=== PATIENT | male | born 1980 | race Caucasian/White ===

== ENCOUNTER 2018-03-23 07:51 | Outpatient (REF) | payer OTHER, SELFPAY ==
[2018-03-23 16:28] LABS: ALT 114 U/L (12-78); AST 34 U/L (15-37); Albumin 3.8 g/dL (3.4-5.0); Alkaline Phosphatase 65 U/L (46-116); Anion Gap 10.1 mmol/L (3-11); BUN 19 mg/dL (7-18); Bilirubin, Total 0.5 mg/dL (0.2-1.0); CO2 25.9 mmol/L (21.0-32.0); CREATININE 1.09 mg/dL (0.70-1.30); Calcium 8.8 mg/dL (8.5-10.1); Chloride 106 mmol/L (98-107); Cholesterol 156 mg/dL (50-200); Glucose 102 mg/dL (70-100); HDL Cholesterol 34 mg/dL (40-60); LDL CHOLESTEROL 104 mg/dL (<100); Sodium 142 mmol/L (136-145); Triglyceride 100 mg/dL (30-150)
== END 2018-03-23 08:11 ==
LOC: NCHCN 07:51
PROVIDERS: PCP Nurse Practitioner; Visit Provider Nurse Practitioner
DX: K76.0 Fatty (change of) liver, not elsewhere classified (principal); I10 Essential (primary) hypertension
CPT/HCPCS: 80053; 80061; 83721

== ENCOUNTER 2018-09-21 17:06 | Outpatient (REF) | payer OTHER, SELFPAY ==
[2018-09-21 18:14] LABS: HCT 37.2 % (40.0-50.0); HGB 11.9 g/dL (13.5-17.5); Mean Corpuscular Hemoglobin 23.2 pg (27.0-33.0); Mean Corpuscular Volume 72.7 fL (80-95); Mean Platelet Volume 11.6 fL (8.0-11.0); Platelet Count 295 x1000/uL (130-400); RBC 5.12 m/cumm (4.50-6.00); RBC Distribution Width 17.8 % (11.8-14.1); White Blood Cell Count 6.77 k/cumm (4.4-10.8)
[2018-09-21 18:34] LABS: ALT 86 U/L (12-78); AST 37 U/L (15-37); Albumin 3.9 g/dL (3.4-5.0); Alkaline Phosphatase 69 U/L (46-116); Anion Gap 11.6 mmol/L (3-11); BUN 15 mg/dL (7-18); Bilirubin, Total 0.4 mg/dL (0.2-1.0); CO2 25.4 mmol/L (21.0-32.0); CREATININE 1.21 mg/dL (0.70-1.30); Calcium 8.8 mg/dL (8.5-10.1); Chloride 101 mmol/L (98-107); Glucose 104 mg/dL (70-100); Potassium 3.5 mmol/L (3.5-5.1); Sodium 138 mmol/L (136-145); Total Protein 7.1 g/dL (6.4-8.2)
== END 2018-09-21 17:26 ==
LOC: NCHCN 17:06
PROVIDERS: PCP Nurse Practitioner; Visit Provider Nurse Practitioner
DX: K76.0 Fatty (change of) liver, not elsewhere classified (principal); I10 Essential (primary) hypertension; R74.8 Abnormal levels of other serum enzymes
CPT/HCPCS: 80053; 85027

== ENCOUNTER 2019-04-14 13:01 | Outpatient (REF) | payer OTHER, SELFPAY ==
[2019-04-14 19:51] LABS: HCT 41.7 % (40.0-50.0); HGB 13.9 g/dL (13.5-17.5); Mean Corp. HGB Concentration 33.3 g/dL (32.0-36.0); Mean Corpuscular Hemoglobin 25.3 pg (27.0-33.0); Mean Platelet Volume 12.1 fL (8.0-11.0); Platelet Count 309 x1000/uL (130-400); RBC 5.49 m/cumm (4.50-6.00); RBC Distribution Width 16.3 % (11.8-14.1); White Blood Cell Count 6.68 k/cumm (4.4-10.8)
[2019-04-14 20:28] LABS: Iron 49 ug/dL (50-175); Total Iron Binding Capacity 378 ug/dL (250-450); Transferrin Sat 13 % (20-55)
[2019-04-14 20:31] LABS: Hemoglobin A1C 5.8 % (4.5-6.2)
[2019-04-14 21:03] LABS: ALT 83 U/L (16-63); AST 34 U/L (15-37); Albumin 4.1 g/dL (3.4-5.0); Alkaline Phosphatase 66 U/L (46-116); Anion Gap 13.3 mmol/L (3-11); BUN 19 mg/dL (7-18); Bilirubin, Total 0.6 mg/dL (0.2-1.0); CO2 25.7 mmol/L (21.0-32.0); CREATININE 1.28 mg/dL (0.70-1.30); Calcium 9.3 mg/dL (8.5-10.1); Calculated LDL 111 mg/dL; Chloride 103 mmol/L (98-107); Cholesterol 171 mg/dL (50-200); Glucose 118 mg/dL (70-100); HDL Cholesterol 37 mg/dL (40-60); Potassium 3.6 mmol/L (3.5-5.1); Sodium 142 mmol/L (136-145); Total Protein 7.5 g/dL (6.4-8.2); Triglyceride 119 mg/dL (30-150); Vitamin B12 635 pg/mL (193-986)
[2019-04-14 21:29] LABS: Folate > 20.0 ng/mL (8.6-20.0)
== END 2019-04-14 13:21 ==
LOC: NCHCN 13:01
PROVIDERS: PCP Nurse Practitioner; Visit Provider Nurse Practitioner
DX: R73.9 Hyperglycemia, unspecified (principal); I10 Essential (primary) hypertension
CPT/HCPCS: 80053; 80061; 85027; 82607; 82746; 83036; 83540; 83550

== ENCOUNTER 2019-08-16 15:12 | Outpatient (REF) | payer OTHER, SELFPAY ==
[2019-08-19 11:45] LABS: Ceruloplasmin 21.8 mg/dL
== END 2019-08-16 15:32 ==
LOC: NCHCN 15:12
PROVIDERS: PCP Nurse Practitioner; Visit Provider Nurse Practitioner
DX: R74.8 Abnormal levels of other serum enzymes (principal)
CPT/HCPCS: 82390

== ENCOUNTER 2020-07-10 12:00 | Outpatient (REF) | payer OTHER, SELFPAY ==
[2020-07-10 14:35] LABS: Hemoglobin A1C 5.5 % (<5.7)
[2020-07-10 14:41] LABS: ALT 70 U/L (16-63); AST 29 U/L (15-37); Albumin 3.8 g/dL (3.4-5.0); Alkaline Phosphatase 65 U/L (46-116); Anion Gap 9.3 mmol/L (3-11); BUN 25 mg/dL (7-18); Bilirubin, Total 0.6 mg/dL (0.2-1.0); CO2 26.7 mmol/L (21.0-32.0); Calcium 9.4 mg/dL (8.5-10.1); Calculated LDL 68 mg/dL (<100); Chloride 104 mmol/L (98-107); Cholesterol 146 mg/dL (<200); Glucose 97 mg/dL (74-106); HDL Cholesterol 32 mg/dL (40-60); Potassium 3.6 mmol/L (3.5-5.1); Sodium 140 mmol/L (136-145); Triglyceride 234 mg/dL (<150)
== END 2020-07-10 12:01 | disposition home or self-care (01) ==
LOC: NCHCN 12:00
PROVIDERS: PCP Nurse Practitioner; Visit Provider Nurse Practitioner
DX: R73.03 Prediabetes (principal); K76.0 Fatty (change of) liver, not elsewhere classified; I10 Essential (primary) hypertension
CPT/HCPCS: 80053; 80061; 83036

== ENCOUNTER 2021-09-27 14:43 | Outpatient (REF) | payer OTHER, SELFPAY ==
[2021-09-27 15:30] LABS: ALT 67 U/L (16-63); AST 24 U/L (15-37); Alkaline Phosphatase 66 U/L (46-116); Anion Gap 9.1 mmol/L (3-11); BUN 19 mg/dL (7-18); Bilirubin, Total 0.9 mg/dL (0.2-1.0); CO2 26.9 mmol/L (21.0-32.0); CREATININE 1.1 mg/dL (0.70-1.30); Calcium 9.1 mg/dL (8.5-10.1); Chloride 104 mmol/L (98-107); Glucose 134 mg/dL (74-106); Potassium 3.5 mmol/L (3.5-5.1); Sodium 140 mmol/L (136-145); Total Protein 7.2 g/dL (6.4-8.2)
== END 2021-09-27 14:44 | disposition home or self-care (01) ==
LOC: NCHCN 14:43
PROVIDERS: PCP Nurse Practitioner; Visit Provider Nurse Practitioner Family
DX: Z00.00 Encounter for general adult medical examination without abnormal findings (principal); I10 Essential (primary) hypertension; K21.9 Gastro-esophageal reflux disease without esophagitis; K76.0 Fatty (change of) liver, not elsewhere classified
CPT/HCPCS: 80053

== ENCOUNTER 2022-05-11 08:22 | Emergency (ER) | payer OTHER, SELFPAY ==
[2022-05-11 08:27] VITALS: BP 171/107; PULSE 72; RESP 18; O2SAT 97
--- NOTE | 2022-05-11 08:30 | DI.CT_ITS ---
Exam(s) CT HEAD WO EXAM: CT HEAD WO CLINICAL HISTORY: Laceration, head injury. TECHNIQUE: Imaging Protocol: Axial computed tomography images with coronal and sagittal reformatted images were created and reviewed COMPARISON: No exams were available for comparison FINDINGS: Ventricles and Extra axial spaces: Normal in size and morphology for the patient's age. Hemorrhage: None. Cerebral parenchyma: Normal. Midline shift: None. Brainstem/Cerebellum: Normal. Calvarium: Normal. Visualized Paranasal sinuses/Mastoids: Clear. Soft Tissues: There is a scalp laceration in the forehead to the right of midline. IMPRESSION: 1. No acute intracranial process. 2. Right frontal scalp laceration. RADIATION DOSE DELIVERED: 801.68mGy.cm Total DLP DATA REPOSITORY: All CT scans at this facility are submitted to the National Radiology Data Registry (NRDR) Dose Index Registry (DIR) with the [employer] ([employer]). RADIATION OPTIMIZATION: All CT scans at this facility use at least one of these dose optimization te chniques: automated exposure control; mA and/or kV adjustment per patient size (includes targeted exa ms where dose is matched to clinical indication); or iterative reconstruction.
--- NOTE | 2022-05-11 08:42 | ED.GENADUL_ITS ---
Discharge Plan Disposition Patient Disposition: Home Condition: Stable Discharge Details Clinical Impression: Laceration of scalp, Head injury due to trauma Primary Care Provider: Missy De La Garza ED Provider: Kenyetta Herrera Home Meds and New Rx's Prescriptions: Continued ESSENTIAL Daily 1 EACH tablet 1 ea PO DAILY Fish Oil 1 EACH capsule 1 ea PO cholecalciferol (vitamin D3) [Vitamin D3] 2,000 UNIT capsule 2,000 unit PO DAILY hydrochlorothiazide 25 mg tablet 25 mg PO DAILY propranolol 10 mg tablet 10 mg PO BID valsartan 160 mg tablet 160 mg PO DAILY lansoprazole [Prevacid 24Hr] 15 mg capsule,delayed release(DR/EC) 15 mg PO DAILY Discharge Instructions Instructions: Head Injury (ED), Head Laceration (ED) Additional Instructions: After 12 to 24 hours you may wash the laceration under running soap and water. Please keep covered with a Band-Aid or similar while outside working in the dust or dirt. Allow to air dry at least 2 hours a day. Return to the ER sooner to be seen for any signs of worsening head injury such as confusion, headache not relieved by Tylenol or ibuprofen, vomiting, blurry vision, or signs of infection including increased redness, red streaks drainage or signs of infection. Please take Tylenol or Ibuprofen with food every 4-6 hours as needed for pain and swelling. You may apply Neosporin or similar for the first 1 to 2 days if desired. Otherwise keep clean and dry. Stand Alone Forms: Work Release Referrals: Missy De La Garza [Primary Care Provider] - 2 weeks Discharge Data Discharge Date/Time-TO BE ENTERED AT DEPARTURE: 05/11/22 10:27 Medical Decision Making 42-year-old male presents to the ER with chief complaint of right frontal forehead laceration which occurred just prior to arrival. Patient was cutting some trees and was hit in the forehead with a branch unknown size. Denies any loss of consciousness, did get knocked down. Denies any C-spine tenderness no crepitus or step-off with palpation. Denies any blurry vision or dizziness. Bleeding is controlled with pressure. Laceration dressed with 4 x 4 gauze, Kerlix, patient was given an ice pack by staff respiratory therapist. CT head without contrast ordered, Tdap, and Tylenol. CT within normal limits, see below. Laceration anesthetized with 1% lidocaine with epi, 4 mils, patient tolerated well anesthesia achieved. Wound irrigated with sterile normal saline with chlorhexidine. Laceration repaired with #6 sutures four-point 0 Ethilon simple interrupted, wound well approximated. Please see procedure note. Discussed home care, strict return instructions including infection with patient and family, verbalized understanding. Patient is remained alert and oriented x4, hemodynamically intact throughout entire stay. This text was generated using [employer] dictation system, please disregard any oddities of phrase or misspellings. Imaging Data Radiologic Study: Imaging: CT Scan Radiologist's impression: COMPARISON: No relevant prior studies available. FINDINGS: Brain: No intracranial hemorrhage, mass effect, midline shift, or extra-axial collection. No acute territorial infarct. Sulci are normal in size for patient's age. Cerebral ventricles: Normal in size for patient's age. Paranasal sinuses: Visualized paranasal sinuses are well aerated. Mastoid air cells: The mastoid air cells are clear bilaterally. Bones/joints: Unremarkable. No depressed calvarial fracture. Soft tissues: Soft tissue laceration in the frontal scalp just to the right of midline. IMPRESSION: 1. No acute intracranial abnormality. No intracranial hemorrhage or depressed calvarial fracture. 2. Right frontal scalp laceration. Thank you for allowing us to participate in the care of your patient. Dictated and Authenticated by: May Rubalcava MD Sign Out No HPI General Mode of arrival: ambulatory . Date/Time Provider Initiated Documentation: 05/11/22 08:34 . Limitations to Documentation: no limitations . Information obtained by: patient, RN notes reviewed and old records reviewed . HPI Narrative: 42-year-old male presents to the ER with chief complaint of right frontal forehead laceration which occurred just prior to arrival. Patient was cutting some trees and was hit in the forehead with a branch unknown size. Denies any loss of consciousness, did get knocked down. Denies any C-spine tenderness no crepitus or step-off with palpation. Denies any blurry vision or dizziness. Bleeding is controlled with pressure. Unknown last tetanus vaccination. 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 Related Data Home Medications Medication Instructions Recorded Confirmed ESSENTIAL Daily 18 mg-0.4 mg 1 ea PO DAILY 03/04/13 05/11/22 tablet (wfkwdoazsizi-Xb-aspp-minerals) cholecalciferol (vitamin D3) 50 2,000 unit PO DAILY 12/14/14 05/11/22 mcg (2,000 unit) capsule (Vitamin D3) omega-3 fatty acids-fish oil 340 1 ea PO 12/14/14 05/06/22 mg-1,000 mg capsule (Fish Oil) hydrochlorothiazide 25 mg tablet 25 mg PO DAILY 04/15/22 05/11/22 lansoprazole 15 mg capsule,delayed 15 mg PO DAILY 04/15/22 05/11/22 release (Prevacid 24Hr) propranolol 10 mg tablet 10 mg PO BID 04/15/22 05/11/22 valsartan 160 mg tablet 160 mg PO DAILY 04/15/22 05/11/22 Allergies Allergy/AdvReac Type Severity Reaction Status Date / Time No Known Allergies Allergy Unverified 05/11/22 08:30 General Stated Complaint: Laceration AMARA: 3 Review of Systems All systems reviewed & are unremarkable except as noted in HPI and below Constitutional Constitutional: Reports headache(s) and Denies weakness Eyes Eyes: Denies loss of vision ENT Ears, Nose, Mouth, and Throat: Denies dizziness, Reports headache(s), Denies nasal trauma, Denies neck pain and Denies nose pain Cardiovascular Cardiovascular: Denies syncope Musculoskeletal Musculoskeletal: Denies neck pain Integumentary/Breasts Skin/Breast: Reports wounds (Approximately 4 cm laceration noted to the right frontal scalp, irregular) Neurologic Neurologic: Reports as per HPI, Denies confusion, Denies dizziness, Denies syncope, Reports headache(s), Denies loss of vision and Denies weakness Psychiatric Psychiatric: Denies confusion PFSH All Active Problems (Updated 05/11/22 @ 10:20 by Kenyetat Herrera NP) Laceration of scalp (Acute) Head injury due to trauma (Acute) JON (obstructive sleep apnea) (Chronic) Hypertension (Chronic) Fatty liver disease, nonalcoholic (Acute) Prediabetes (Acute) Ventral hernia (Acute) Medical History Gastroesophageal reflux disease 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 Father No problems noted. Social History Smoking/Tobacco Use Status: Never Smoking risk assessment performed?: Yes Alcohol Intake: never Drug use: Never Substance use type: does not use Do you feel safe at home: Yes Do you feel safe in your relationship?: Yes Exam Narrative Exam Narrative: General: Well Developed, Awake and Alert, conversant. Skin: Warm and Dry HEENT: Head: No palpable deformities, Normocephalic Eyes: Pupils PERRLA, EOM's intact. No periorbital eccymosis or step off Ears: Canal patent. Tympanic membranes are clear . No wilson's sign, no hemptympanum. Nose/Face: Approximately 4 cm laceration to the right frontal scalp, bleeding controlled with pressure. Facial bones nontender to palpation and stable with manipulation. Mouth/Throat: No intraoral trauma. Teeth and mandible are intact. Neck: No midline tenderness, no step off, no deformity to palpation of C-spine. Trachea midline. Chest: No surface trauma. Nontender without crepitus or deformity. Lungs clear to ausculatation bilaterally. Heart: RRR, no rubs, murmurs or gallop. Neuro: ANO x4, GCS 15, cranial nerves II through XII intact. Motor and sensory exam nonfocal. Reflexes are symmetric. Course Vital Signs Vital signs: Vital Signs Pulse 72 05/11/22 08:27 Respiratory Rate 18 05/11/22 08:27 Blood Pressure 171/107 H 05/11/22 08:27 Pulse Oximetry 97 05/11/22 08:27 Pulse 72 05/11/22 08:27 Respiratory Rate 18 05/11/22 08:27 Respiratory Effort Non-Labored 05/11/22 08:32 Blood Pressure 171/107 H 05/11/22 08:27 Blood Pressure Position Sitting 05/11/22 08:27 Pulse Oximetry 97 05/11/22 08:27 Oxygen Delivery Method Room Air 05/11/22 08:27 Oxygen Flow Rate 0 05/11/22 08:27 Procedures Laceration Laceration 1: Site: scalp (Mid Frontal) Size (cm): 4 Description: irregular Depth: simple, single layer (Subcutaneous ) Local Anesthetic: Lidocaine 1%, with Epi and other anesthetic (Topical Let 2 ml) Amount of anesthesia used (mL): 4 Pre-repair: wound explored, irrigated extensively and deep structures intact Skin layer closed with: nylon Size (cm): 4-0 Number of sutures: 6 Technique: simple, interrupted
[2022-05-11] MEDS: Acetaminophen 500 MG TAB 1000 MG PO (08:53)
[2022-05-11] MEDS: Lidocaine/Epinephri/Tetracaine Topical Gel 3 ML TP (08:53)
--- NOTE | 2022-05-11 09:30 | DI.VRAD_ITS ---
PROCEDURE INFORMATION: Exam: CT Head Without Contrast Exam date and time: 05/11/2022 9:09 AM Age: 42 years old Clinical indication: Injury or trauma; Other: Hit head on tree; Work related; Abrasion; Head, generalized TECHNIQUE: Imaging protocol: Computed tomography of the head without contrast. COMPARISON: No relevant prior studies available. FINDINGS: Brain: No intracranial hemorrhage, mass effect, midline shift, or extra-axial collection. No acute territorial infarct. Sulci are normal in size for patient's age. Cerebral ventricles: Normal in size for patient's age. Paranasal sinuses: Visualized paranasal sinuses are well aerated. Mastoid air cells: The mastoid air cells are clear bilaterally. Bones/joints: Unremarkable. No depressed calvarial fracture. Soft tissues: Soft tissue laceration in the frontal scalp just to the right of midline. IMPRESSION: 1. No acute intracranial abnormality. No intracranial hemorrhage or depressed calvarial fracture. 2. Right frontal scalp laceration. Dictated and Authenticated by: May Rubalcava MD. Ordering:DIMA Kumari MD
[2022-05-11 10:25] VITALS: BP 131/85
== END 2022-05-11 10:27 | disposition home or self-care (01) ==
PROVIDERS: Emergency Provider Registered Nurse Emergency; PCP Nurse Practitioner
DX: S01.01XA Laceration without foreign body of scalp, initial encounter (principal); Z23 Encounter for immunization; Z87.828 Personal history of other (healed) physical injury and trauma; W22.8XXA Striking against or struck by other objects, initial encounter; Y93.H2 Activity, gardening and landscaping
CPT/HCPCS: 12002; 90471; 99284; 70450; 99282

== ENCOUNTER 2022-05-22 16:26 | Emergency (ER) | payer OTHER, SELFPAY ==
[2022-05-22 16:29] VITALS: BP 175/105; PULSE 75; RESP 18; TEMP 37; O2SAT 98
--- NOTE | 2022-05-22 17:29 | ED.GENADUL_ITS ---
Discharge Plan Disposition Patient Disposition: Home Condition: Good Discharge Details Clinical Impression: Encounter for removal of sutures Primary Care Provider: RAMIREZ GIBSON ED Provider: Malvin Frausto Home Meds and New Rx's Prescriptions: No Action ESSENTIAL Daily 1 EACH tablet 1 ea PO DAILY Fish Oil 1 EACH capsule 1 ea PO cholecalciferol (vitamin D3) [Vitamin D3] 2,000 UNIT capsule 2,000 unit PO DAILY hydrochlorothiazide 25 mg tablet 25 mg PO DAILY propranolol 10 mg tablet 10 mg PO BID valsartan 160 mg tablet 160 mg PO DAILY lansoprazole [Prevacid 24Hr] 15 mg capsule,delayed release(DR/EC) 15 mg PO DAILY Discharge Instructions Additional Instructions: Continue to monitor for signs of infection return immediately if these occur otherwise follow-up with primary care provider as needed Discharge Data Discharge Date/Time-TO BE ENTERED AT DEPARTURE: 05/22/22 16:48 Medical Decision Making Patient here for suture removal. 6 sutures removed by nurse, no dehiscence, no signs of infection, and wound healing well. Patient encouraged to monitor for signs of infection and return if these occur. HPI General Mode of arrival: ambulatory . Limitations to Documentation: no limitations . Information obtained by: patient, RN notes reviewed and old records reviewed . History of Present Illness 42 year old M presents to the emergency department with the chief complaint of Suture removal, Patient notes no other symptoms.. Related Data Home Medications Medication Instructions Recorded Confirmed ESSENTIAL Daily 18 mg-0.4 mg 1 ea PO DAILY 03/04/13 05/11/22 tablet (uffjwugzyzcy-Ay-rvuw-minerals) cholecalciferol (vitamin D3) 50 2,000 unit PO DAILY 12/14/14 05/11/22 mcg (2,000 unit) capsule (Vitamin D3) omega-3 fatty acids-fish oil 340 1 ea PO 12/14/14 05/06/22 mg-1,000 mg capsule (Fish Oil) hydrochlorothiazide 25 mg tablet 25 mg PO DAILY 04/15/22 05/11/22 lansoprazole 15 mg capsule,delayed 15 mg PO DAILY 04/15/22 05/11/22 release (Prevacid 24Hr) propranolol 10 mg tablet 10 mg PO BID 04/15/22 05/11/22 valsartan 160 mg tablet 160 mg PO DAILY 04/15/22 05/11/22 Allergies Allergy/AdvReac Type Severity Reaction Status Date / Time No Known Allergies Allergy Unverified 05/11/22 08:30 General Stated Complaint: SutureRem AMARA: 4 Review of Systems Narrative: 6 systems reviewed and unremarkable except what is marked below. 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 Father No problems noted. Social History Smoking/Tobacco Use Status: Never Smoking risk assessment performed?: Yes Alcohol Intake: never Drug use: Never Substance use type: does not use Do you feel safe at home: Yes Do you feel safe in your relationship?: Yes Exam Const General: cooperative, comfortable and no acute distress Orientation: alert, awake and oriented x3 Resp Effort & Inspection: normal respiratory effort, able to speak in complete sentences and no respiratory distress Skin Rashes: no rashes Trauma: laceration (healing well laceration without erythema, purulence, or dehiscence.) Neuro General: patient alert, patient awake, patient oriented x3, moves all extremities and no focal motor deficits Course Vital Signs Vital signs: Vital Signs Temperature 37.0 C 05/22/22 16:29 Pulse 75 05/22/22 16:29 Respiratory Rate 18 05/22/22 16:29 Blood Pressure 175/105 H 05/22/22 16:29 Pulse Oximetry 98 05/22/22 16:29 Temperature 37.0 C 05/22/22 16:29 Temperature Source Tympanic 05/22/22 16:29 Pulse 75 05/22/22 16:29 Respiratory Rate 18 05/22/22 16:29 Respiratory Effort 05/22/22 16:33 Blood Pressure 175/105 H 05/22/22 16:29 Blood Pressure Position Supine 05/22/22 16:29 Pulse Oximetry 98 05/22/22 16:29 Oxygen Delivery Method Room Air 05/22/22 16:29 Oxygen Flow Rate 0 05/22/22 16:29 Pain Level 0 05/22/22 16:29
== END 2022-05-22 16:48 | disposition home or self-care (01) ==
LOC: ER 16:32
PROVIDERS: Emergency Provider Nurse Practitioner Family; PCP Nurse Practitioner Family
DX: Z48.02 Encounter for removal of sutures (principal)
CPT/HCPCS: 99281

== ENCOUNTER 2022-09-30 18:30 | Outpatient (REF) | payer OTHER, SELFPAY ==
[2022-09-30 17:36] LABS: Abs Immature Grans 0.02 10^3/uL (0.0-0.06); Absolute Basophil Count 0.06 10^3/uL (0.0-0.2); Absolute Eosinophil Count 0.19 10^3/uL (0.0-0.7); Absolute Lymphocyte Count 1.37 10^3/uL (1.2-3.4); Absolute Neutrophil Count 4.16 10^3/uL (1.2-6.7); Eosinophils % 3.1; HCT 45.8 % (40.0-50.0); HGB 15.8 g/dL (13.5-17.5); Immature Grans % 0.3; Lymphocytes % 22.1; MCH 28.8 pg (27.0-33.0); MCHC 34.5 % (32.0-36.0); MCV 83 fL (80-95); Monocytes % 6.5; Platelet Count 234 10^3/uL (130-400); RBC 5.49 10^6/uL (4.36-5.78); RDW 12.5 % (11.8-14.1); RDW-SD 37.8 fL
[2022-09-30 18:51] LABS: ALT 107 U/L (16-63); AST 35 U/L (15-37); Alkaline Phosphatase 65 U/L (46-116); Anion Gap 9.2 mmol/L (3-11); BUN 13 mg/dL (7-18); Bilirubin, Total 0.7 mg/dL (0.2-1.0); CO2 28.8 mmol/L (21.0-32.0); CREATININE 1.1 mg/dL (0.70-1.30); Calcium 9.4 mg/dL (8.5-10.1); Calculated LDL 97 mg/dL (<100); Chloride 104 mmol/L (98-107); Cholesterol 154 mg/dL (<200); Estimated GFR 84.89 (mL/min/1.73m2); Glucose 101 mg/dL (74-106); HDL Cholesterol 38 mg/dL (40-60); Potassium 3.8 mmol/L (3.5-5.1); Sodium 142 mmol/L (136-145); Total Protein 7.3 g/dL (6.4-8.2); Triglyceride 99 mg/dL (<150)
== END 2022-09-30 18:31 | disposition home or self-care (01) ==
LOC: NCHCN 18:30
PROVIDERS: PCP Nurse Practitioner Family; Visit Provider Nurse Practitioner Family
DX: Z00.00 Encounter for general adult medical examination without abnormal findings (principal); I10 Essential (primary) hypertension; R73.03 Prediabetes; K76.0 Fatty (change of) liver, not elsewhere classified; K21.9 Gastro-esophageal reflux disease without esophagitis
CPT/HCPCS: 80053; 80061; 85025

== ENCOUNTER 2022-12-16 19:24 | Emergency (ER) | payer OTHER, SELFPAY ==
[2022-12-16 19:26] VITALS: BP 165/103; PULSE 81; RESP 16; TEMP 36.6; O2SAT 99
--- NOTE | 2022-12-16 19:47 | NUR.NOTE ---
Nursing Note: Wound washed with soap and tap water. Hand also cleaned for suturing.
--- NOTE | 2022-12-16 20:02 | ED.GENADUL_ITS ---
Discharge Plan Disposition Patient Disposition: Home Discharge Details Clinical Impression: Laceration of thumb Primary Care Provider: RAMIREZ GIBSON ED Provider: Malvin Frausto Home Meds and New Rx's Prescriptions: New cephalexin 500 mg tablet 500 mg PO QID 2 Days Qty: 8 0RF Continued ESSENTIAL Daily 1 EACH tablet 1 ea PO DAILY Fish Oil 1 EACH capsule 1 ea PO cholecalciferol (vitamin D3) [Vitamin D3] 2,000 UNIT capsule 2,000 unit PO DAILY hydrochlorothiazide 25 mg tablet 25 mg PO DAILY propranolol 10 mg tablet 10 mg PO BID valsartan 160 mg tablet 160 mg PO DAILY lansoprazole [Prevacid 24Hr] 15 mg capsule,delayed release(DR/EC) 15 mg PO DAILY Discharge Instructions Instructions: Laceration (ED) Additional Instructions: Watch for any signs of infection and return immediately to the emergency department if these occur. Otherwise keep dressing in place for the next 24-48 hours and then keep wound clean and dry. Also it is very important that you wear the provided splint and do not bend the digit until sutures are removed as this may complicate healing. We have placed a referral to follow-up with orthopedics for reassessment due to potential tendon injury otherwise return to the emergency department 10 days for suture removal. Please call the orthopedic office tomorrow afternoon for arrangement of follow- up appointment Referrals: [facility] [Provider Group] - 2 days Medical Decision Making Patient presenting to the emergency department for chief complaint of dorsal thumb laceration. 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 Patient denies any other injury or trauma and is up-to-date on tetanus. Physical exam shows a flap laceration to the dorsal aspect of the right thumb. Patient has sensation intact distally, normal cap refill and appropriate flexion and extension of the digit. Digital block was performed and wound thoroughly irrigated. On deeper inspection of the thumb it does appear that there could be a small laceration to the flexor pollicis longus. Reassessed patient's flexor strength which is fully intact and no abnormality noted. Because of this wound was closed but will place patient on follow-up list to follow-up with orthopedist in the next 2 days for reassessment. Given potential tendon involvement also laceration being deep and close to joint we will place patient on Keflex for 3 days as prophylaxis. After discussion of diagnosis and plan of care patient has no further needs, questions, or concerns and states clear understanding to return to the emergency department for any worsening symptoms. This documentation was generated using Basha dictation system, please disregard any oddities of phrase or misspellings. HPI General Mode of arrival: ambulatory . Date/Time Provider Initiated Documentation: 12/16/22 19:34 . Limitations to Documentation: no limitations . Information obtained by: patient and RN notes reviewed . History of Present Illness 42 year old M presents to the emergency department with the chief complaint of Right thumb laceration, described as moderate, Quality is described as sharp, and is localized to the right and upper extremity. Patient reports no radiation. Patient started experiencing this hour(s) (6) and it has been constant. No relieving factors improve symptom(s), Patient notes no other symptoms.. Patient did receive the following treatments prior to arrival, other (Irrigated wound with hydrogen peroxide) Related Data Home Medications Medication Instructions Recorded Confirmed ESSENTIAL Daily 18 mg-0.4 mg 1 ea PO DAILY 03/04/13 05/11/22 tablet (ufkocwiplffz-Zq-vpyc-minerals) cholecalciferol (vitamin D3) 50 2,000 unit PO DAILY 12/14/14 12/16/22 mcg (2,000 unit) capsule (Vitamin D3) omega-3 fatty acids-fish oil 340 1 ea PO 12/14/14 05/06/22 mg-1,000 mg capsule (Fish Oil) hydrochlorothiazide 25 mg tablet 25 mg PO DAILY 04/15/22 12/16/22 lansoprazole 15 mg capsule,delayed 15 mg PO DAILY 04/15/22 12/16/22 release (Prevacid 24Hr) propranolol 10 mg tablet 10 mg PO BID 04/15/22 12/16/22 valsartan 160 mg tablet 160 mg PO DAILY 04/15/22 12/16/22 cephalexin 500 mg tablet 500 mg PO QID 2 days #8 tabs 12/16/22 Previous Rx's Medication Instructions Recorded cephalexin 500 mg tablet 500 mg PO QID 2 days #8 tabs 12/16/22 Allergies Allergy/AdvReac Type Severity Reaction Status Date / Time No Known Allergies Allergy Unverified 12/16/22 19:33 General Stated Complaint: Laceration AMARA: 4 Review of Systems Cardiovascular Cardiovascular: Denies syncope and Denies lightheadedness Musculoskeletal Musculoskeletal: Denies deformity, Denies limited range of motion and Denies numbness Integumentary/Breasts Skin/Breast: Reports as per HPI Neurologic Neurologic: Denies syncope, Denies numbness and Denies paresthesias PFS All Active Problems (Updated 12/16/22 @ 20:40 by Malvin Frausto NP) Laceration of thumb (Acute) JON (obstructive sleep apnea) (Chronic) Hypertension (Chronic) Fatty liver disease, nonalcoholic (Acute) Prediabetes (Acute) Ventral hernia (Acute) Medical History Gastroesophageal reflux disease 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 Father No problems noted. Social History Smoking/Tobacco Use Status: Never Smoking risk assessment performed?: Yes Alcohol Intake: never Drug use: Never Substance use type: does not use Housing: house Do you feel safe at home: Yes Do you feel safe in your relationship?: Yes Exam Const General: cooperative and no acute distress Orientation: alert, awake and oriented x3 Limitations: mental status not altered Resp Effort & Inspection: normal respiratory effort and able to speak in complete sentences Cardio Rate: regular rate Rhythm: regular rhythm Pulses: normal peripheral pulses Neuro General: patient alert, patient awake, patient oriented x3, gait normal, tone normal, moves all extremities, normal light touch, pain and propioception and no focal motor deficits Motor: no movement abnormalities noted Sensory Exam: no sensory deficits noted Extrem General: normal exam except as noted Right upper extremity: hand Details: neuromotor exam normal, neurosensory exam normal, tendon exam normal, vascular exam Details: radial pulse present and normal capillary refill, normal ROM of fingers and laceration (3.5 cm) thumb dorsal aspect central Details: flap, actively bleeding, involving subcutaneous tissue, with motor nerve function intact and with sensation intact Course Vital Signs Vital signs: Vital Signs Temperature 36.6 C 12/16/22 19:26 Pulse 81 12/16/22 19:26 Respiratory Rate 16 12/16/22 19:26 Blood Pressure 165/103 H 12/16/22 19:26 Pulse Oximetry 99 12/16/22 19:26 Temperature 36.6 C 12/16/22 19:26 Pulse 81 12/16/22 19:26 Respiratory Rate 16 12/16/22 19:26 Respiratory Effort Normal 12/16/22 19:31 Blood Pressure 165/103 H 12/16/22 19:26 Blood Pressure Position Sitting 12/16/22 19:26 Pulse Oximetry 99 12/16/22 19:26 Oxygen Delivery Method Room Air 12/16/22 19:26 Oxygen Flow Rate 0 12/16/22 19:26 Pain Level 6 12/16/22 19:26 Procedures Laceration Laceration 1: Site: hand Side (If applicable): right Size (cm): 3.5 Description: flap Depth: involves tendon Local Anesthetic: Lidocaine 1% Amount of anesthesia used (mL): 3 Pre-repair: wound explored and irrigated extensively Skin layer closed with: other (Prolene) Size (cm): 4-0 Number of sutures: 6 Technique: simple, interrupted
--- NOTE | 2022-12-16 20:07 | NUR.NOTE ---
Nursing Note: Wound has been irrigated after numbing for suturing.
[2022-12-16] MEDS: Cephalexin 500 MG CAP, 4 CAPS/BTL PO (20:54)
[2022-12-16 20:57] VITALS: BP 147/96; PULSE 85; RESP 18; O2SAT 100
== END 2022-12-16 20:56 | disposition home or self-care (01) ==
PROVIDERS: Emergency Provider Nurse Practitioner Family; PCP Nurse Practitioner Family
DX: S61.011A Laceration without foreign body of right thumb without damage to nail, initial encounter (principal); I10 Essential (primary) hypertension; W26.8XXA Contact with other sharp object(s), not elsewhere classified, initial encounter; Y93.H3 Activity, building and construction; Y92.018 Other place in single-family (private) house as the place of occurrence of the external cause; Y99.0 Civilian activity done for income or pay
CPT/HCPCS: 12002; 99282; 99283

== ENCOUNTER 2022-12-27 17:02 | Emergency (ER) | payer OTHER, SELFPAY ==
--- NOTE | 2022-12-27 17:31 | W.ED.GENAD ---
Discharge Plan Disposition Patient Disposition: Home Condition: Stable Discharge Details Clinical Impression: Encounter for removal of sutures Primary Care Provider: RAMIREZ GIBSON ED Provider: Zurdo Mathews Home Meds and New Rx's Prescriptions: Continued ESSENTIAL Daily 1 EACH tablet 1 ea PO DAILY Fish Oil 1 EACH capsule 1 ea PO cholecalciferol (vitamin D3) [Vitamin D3] 2,000 UNIT capsule 2,000 unit PO DAILY hydrochlorothiazide 25 mg tablet 25 mg PO DAILY propranolol 10 mg tablet 10 mg PO BID valsartan 160 mg tablet 160 mg PO DAILY lansoprazole [Prevacid 24Hr] 15 mg capsule,delayed release(DR/EC) 15 mg PO DAILY Discharge Instructions Instructions: Stitches Removal (ED) Additional Instructions: if you develop spreading redness, severe pain or fevers return to the emergencydepartment Medical Decision Making 42 yo male comes in for suture removal, he sustained a laceration to the left posterior thumb on 12/16. He has a well healed wound with no erythema on the posterior left thumb, full rom,no pain. Wound seems adequate for suture removal, no signs to suggest underlying infection. Nursing to remove sutures, return precautions given Differential Diagnosis Differential Diagnosis: suture removal, wound HPI General Mode of arrival: ambulatory. Date/Time Provider Initiated Documentation: 12/27/22 17:31. Limitations to Documentation: no limitations. Information obtained by: patient. History of Present Illness 42 year old M presents to the emergency department with the chief complaint of left thumb suture removal, described as moderate, No relieving factors improve symptom(s), No exacerbating factors reported . Patient notes no other symptoms.. Patient did receive the following treatments prior to arrival, none Related Data Home Medications Medication Instructions Recorded Confirmed ESSENTIAL Daily 18 mg-0.4 mg 1 ea PO DAILY 03/04/13 05/11/22 tablet (zmpotbihrobj-Ma-rdfq-minerals) cholecalciferol (vitamin D3) 50 2,000 unit PO DAILY 12/14/14 12/16/22 mcg (2,000 unit) capsule (Vitamin D3) omega-3 fatty acids-fish oil 340 1 ea PO 12/14/14 05/06/22 mg-1,000 mg capsule (Fish Oil) hydrochlorothiazide 25 mg tablet 25 mg PO DAILY 04/15/22 12/16/22 lansoprazole 15 mg capsule,delayed 15 mg PO DAILY 04/15/22 12/16/22 release (Prevacid 24Hr) propranolol 10 mg tablet 10 mg PO BID 04/15/22 12/16/22 valsartan 160 mg tablet 160 mg PO DAILY 04/15/22 12/16/22 Allergies Allergy/AdvReac Type Severity Reaction Status Date / Time No Known Allergies Allergy Unverified 12/16/22 19:33 General AMARA: 4 Review of Systems All systems reviewed & are unremarkable except as noted in HPI and below Constitutional Constitutional: Denies chills, Denies fever(s) and Denies weakness Cardiovascular Cardiovascular: Denies chest pain and Denies dyspnea Respiratory Respiratory: Denies cough and Denies dyspnea Gastrointestinal Gastrointestinal: Denies abdominal pain, Denies nausea and Denies vomiting Musculoskeletal Musculoskeletal: Denies joint swelling Neurologic Neurologic: Denies weakness [facility] [place] All Active Problems (Updated 12/27/22 @ 17:32 by Zurdo Mathews MD) Laceration of thumb (Acute) Encounter for removal of sutures (Acute) JON (obstructive sleep apnea) (Chronic) Hypertension (Chronic) Fatty liver disease, nonalcoholic (Acute) Prediabetes (Acute) Ventral hernia (Acute) Medical History Gastroesophageal reflux disease 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 Father No problems noted. Social History Smoking/Tobacco Use Status: Never Smoking risk assessment performed?: Yes Alcohol Intake: never Drug use: Never Substance use type: does not use Housing: house Do you feel safe at home: Yes Do you feel safe in your relationship?: Yes Exam Const General: no acute distress Orientation: alert HENMT Head: normal to inspection Ears: external ears normal General nose exam: external nose normal Mouth: moist mucous membranes Eyes General: appearance normal, both eyes and all related structures Neck Neck: normal visual inspection Resp Effort & Inspection: normal respiratory effort and able to speak in complete sentences Cardio Rate: regular rate Skin General skin exam: no rashes or lesions noted Neuro General: patient alert and patient oriented x3 Extrem General: full ROM and capillary refill normal Psych Mental Status: mental status grossly normal
[2022-12-27 17:32] VITALS: BP 132/80; PULSE 80; RESP 18; TEMP 36.8
== END 2022-12-27 18:20 | disposition home or self-care (01) ==
PROVIDERS: Emergency Provider Emergency Medicine; PCP Nurse Practitioner Family
DX: Z48.02 Encounter for removal of sutures (principal)

== ENCOUNTER 2023-07-18 08:28 | Day surgery (SDC) | payer OTHER, SELFPAY ==
--- NOTE | 2023-07-17 16:47 | W.PM.DSUDISC ---
Date of service: 07/18/23 Time of Service: 12:29 Discharge Plan Disposition Patient Disposition: Home Condition: Good Discharge Details Reason For Visit: Open ventral hernia repair with mesh Attending Provider: Ryan Arshad Primary Care Provider: RAMIREZ GIBSON Home Meds and New Rx's Prescriptions: New tramadol 50 mg tablet 50 mg PO Q8H PRNQty: 15 0RF Rx Instructions: Take 1 to 2 tablets by mouth every 8 hours if needed for more severe pain. tramadol 50 mg tablet 50 mg PO Q8H PRNQty: 15 0RF Rx Instructions: Take 1 to 2 tablets by mouth up to every 8 hours if needed for severe pain. Continued ESSENTIAL Daily 1 EACH tablet 1 ea PO DAILY Fish Oil 1 EACH capsule 1 ea PO DAILY cholecalciferol (vitamin D3) [Vitamin D3] 2,000 UNIT capsule 2,000 unit PO DAILY hydrochlorothiazide 25 mg tablet 25 mg PO DAILY propranolol 10 mg tablet 10 mg PO BID valsartan 160 mg tablet 160 mg PO DAILY lansoprazole [Prevacid 24Hr] 15 mg capsule,delayed release(DR/EC) 15 mg PO DAILY Discharge Instructions Instructions: Ventral Hernia Repair (GEN) Additional Instructions: Favian, you did great in the operating room today. We were able to get everything reduced back down through the hernia defect, and repair it just like we talked about. There is a permanent mesh tucked underneath and affixed in place to help prevent anything from coming up through. I was also able to get the fascial layer closed over top of this, hopefully that will provide quite a bit of strength moving forward. Please be very careful with your lifting in the weeks to come. Until I see you in the office, I do not want to lifting anything more than 10 pounds. You may have a fair amount of bruising that occurs over the area. If that occurs, do not be alarmed, it is very normal. I would like to know if you notice the incision turning bright red, or becoming increasingly tender with discharge. You should try to keep the incision dry for the next 24 hours. At that point, you can remove the bandages and shower with warm soapy water. The incision should be rinsed clean at least 1 time per day. Do not soak it underwater for any prolonged periods of time. So no tub baths, or swimming in pools. We have made a follow-up appointment with you on August 05 at 2:30 PM. I look forward to seeing you then. If you need anything in the meantime, please do not hesitate to call. 1. Resume all of your regular medications. 2. Heating pads and ice packs are fine to use over the incision to help with discomfort. 3. Okay to use tylenol and ibuprofen over the counter should be used for pain. I recommend alternating them every 6 hours [id number] for the next 2 days. Then use them as needed. I have also provided a prescription for a medication called tramadol if you need it for pain. 4. Leave bandage in place for 24 hours, then remove. 5. Shower with warm soapy water. Pat dry. Use a bandaid if needed to protect your clothing. 6. No soaking or tub baths until I see you in the office. 7. No heavy lifting until I see you in the office. 8.Call the office (or go directly to the emergency room after hours) if you notice any of the following: Develop chills (warm to touch), or if you have a thermometer and your temperature is above 101 Difficulty breathing or difficultly swallowing Persistent vomiting Any bleeding ? exceeding one tablespoon 9. Call your physician if the site where your intravenous was started becomes red, swollen, painful, and warm to touch. Stand Alone Forms: Anesthesia Discharge Trini Hugo (DSU) Activity:: No heavy lifting Remove Dressings/Wound Care:: 24 hours Shower/Bathe:: 24 hours Diet:: As Tolerated Discharge Orders Discharge Orders: Discharge Order (Routine); Ordered 07/17/23 Ordered By: Ryan Arshad DS: Diagnosis Discharge Diagnosis (1) Ventral hernia: Status: Acute Asessment and Plan: Status post ventral hernia repair with mesh, follow-up in the office
--- NOTE | 2023-07-17 16:48 | ROE_ITS ---
Date of service: 07/18/23 Time of Service: 12:37 Operative Note Operative Note DATE OF PROCEDURE: 07/18/23 PRE-OP DIAGNOSIS: Ventral hernia POST-OP DIAGNOSIS: same PROCEDURE: Open ventral hernia repair with mesh SURGEON: Ryan Arshad SCREW MACHINE SET UP OPERATOR TOOL: Renee Lockhart ANESTHESIA TYPE: Local By Surgeon and General LMA/ETT Refer to Anesthesia Record ESTIMATED BLOOD LOSS: 25 PATHOLOGY: none sent COMPLICATIONS: None Patient was transported to: PACU Patient's condition: stable Indications: Malvin is a 43-year-old male with a complex abdominal surgical history, who comes to the office with a ventral hernia. It is hard to tell if this is arising from an old laparotomy incision site, or a separate ventral defect. Regardless, he has had increasing episodes of pain and tenderness in the area that been associated with nausea and vomiting. This seems most consistent with intermittent involvement of the hollow viscera resulting in partial small bowel obstruction. Findings: 4 x 3 cm ventral hernia defect Procedure Description: After the induction of general endotracheal anesthesia, I prepped and draped the anterior abdominal wall in the usual fashion. With the patient asleep, I was able to completely reduce the hernia and its contents. The defect itself is horizontally oriented relative to the midline laparotomy. The exact origin of it is difficult to decipher. Regardless, it seems that the best approach would be a transverse incision through the abdominal wall skin and soft tissues in order to maximally expose the hernia defect. Therefore, I anesthetized the skin with a generous field block using Exparel, and incised the skin transversely over the central portion of the hernia. I dissected down through the subcutaneous tissues and identified the hernia sac. It seems like it probably contained omentum. Tedious dissection was used to separate the hernia sac from the surrounding anterior abdominal wall soft tissues. I dissected down to the fascia edge, which was completely cleared. His anatomy is quite distorted from his previous surgeries, but I suspect that this hernia probably arose from his previous laparotomy incision. However, although we were to the right of the midline, I never encountered any rectus muscle. Rather, there was just a thin attenuated fascia surrounding the defect. With the fascia edge completely dissected, the actual hole measured about 4 cm left to right by about 3 cm top to bottom. Next, I began preparing a Ventralight ST hernia patch (approximately 6 cm) to help with this closure. 2-0 Prolene sutures were placed in a horizontal mattress fashion oriented appropriately to parachuted the mesh to the underside of the fascia. After all of the sutures were oriented appropriately, the patch was delivered down into the abdominal cavity, and gently elevated up into place on the underside of the fascia. It was appropriately seated. It felt well sealed. Sutures were affixed in place. The surgical site was irrigated. Next, I closed the fascia with interrupted 0 Prolene stitches. Again, the field was irrigated. Next, the overlying soft tissues were approximated with 2-0 Vicryl stitches. Finally, the skin was closed using a deep layer of 3-0 Vicryl stitches followed by running subcuticular suture. Bandages were applied, and the patient was allowed awaken from anesthesia and transferred to the recovery unit.
[2023-07-18] VITALS (9 sets, daily range): BP systolic 126–157; BP diastolic 80–99; PULSE 69–76; RESP 12–18; TEMP 36–36.7; O2SAT 95–98; BMI 40.9
[2023-07-18] MEDS: Celecoxib 200 MG CAP PO (09:02)
[2023-07-18] MEDS: Acetaminophen 500 MG TAB 1000 MG PO (09:02)
[2023-07-18] MEDS: Gabapentin 300 MG CAP 600 MG PO (09:02)
[2023-07-18] MEDS: Lactated Ringers 1,000 ML 80 ML IV (09:18)
--- NOTE | 2023-07-18 09:33 | W.ANESPRE ---
General Info Date of Service Date Performed: 07/18/23 Height: 5 ft 10 in Weight: 129.5 kg Body Mass Index (BMI): 40.9 Surgical Procedure: Operation Date: 07/18/23 09:40 Proposed Procedure Side Surgeon p Herniorrhaphy Ventral w/Mesh Ryan Arshad MD Actual Procedure Side Surgeon p Herniorrhaphy Ventral w/Mesh Not Applicable Ryan Arshad MD Pre-Op Diagnosis Post-Op Diagnosis Open ventral hernia repair with mesh Meds Allergies and Home Medications Allergies Allergy/AdvReac Type Severity Reaction Status Date / Time No Known Allergies Allergy Unverified 07/18/23 08:59 Home Medication Medication Instructions Recorded ESSENTIAL Daily 18 mg-0.4 mg 1 ea PO DAILY 03/04/13 tablet (xtukztkwowku-Yw-juxl-minerals) cholecalciferol (vitamin D3) 50 2,000 unit PO DAILY 12/14/14 mcg (2,000 unit) capsule (Vitamin D3) omega-3 fatty acids-fish oil 340 1 ea PO DAILY 12/14/14 mg-1,000 mg capsule (Fish Oil) hydrochlorothiazide 25 mg tablet 25 mg PO DAILY 04/15/22 lansoprazole 15 mg capsule,delayed 15 mg PO DAILY 04/15/22 release (Prevacid 24Hr) propranolol 10 mg tablet 10 mg PO BID 04/15/22 valsartan 160 mg tablet 160 mg PO DAILY 04/15/22 Current Visit Medications: Current Medications Generic Name Dose Route Start Last Admin Trade Name Freq PRN Reason Stop Dose Admin Acetaminophen 1,000 mg 07/18/23 06:00 07/18/23 09:02 Acetaminophen 500 Mg Tab PO 07/18/23 23:59 1,000 mg PREOP JIGAR Administration Celecoxib 200 mg 07/18/23 06:00 07/18/23 09:02 Celecoxib 200 Mg Cap PO 07/18/23 23:59 200 mg PREOP JIGAR Administration Gabapentin 600 mg 07/18/23 06:00 07/18/23 09:02 Gabapentin 300 Mg Cap PO 07/18/23 23:59 600 mg PREOP JIGAR Administration Hydromorphone HCl 0.2 mg 07/17/23 16:50 Hydromorphone 2 Mg/Ml Syr IVP 08/16/23 16:49 Q1H PRN PRN Hydromorphone HCl 2 mg 07/17/23 16:50 Hydromorphone 2 Mg Tab PO 08/16/23 16:49 Q4H PRN PRN Pain Ringer's Solution 1,000 mls @ 80 mls/hr 07/18/23 06:00 07/18/23 09:18 IV 07/18/23 23:59 80 mls/hr INFUSION JIGAR Administration Cefazolin Sodium 3,000 mg/ 100 mls @ 200 mls/hr 07/18/23 06:00 Sodium Chloride IV 07/18/23 23:59 PREOP JIGAR IV Miscellaneous Supplies 1 each 07/18/23 06:00 Iv Access IV 07/18/23 23:59 DIRECTED JIGAR Sodium Chloride 0 ml 07/18/23 06:00 Normal Saline Flush 10 Ml Syr IV 07/18/23 23:59 PRN PRN Sodium Chloride 0 ml 07/18/23 06:00 Normal Saline 10 Ml Vial IJ 07/18/23 23:59 DIRECTED PRN Sterile Water 0 ml 07/18/23 06:00 Water,Injection,Sterile 10 Ml Vial IJ 07/18/23 23:59 DIRECTED PRN PFSH Active Problems Active Problems: Problem Status Onset Code JON (obstructive sleep apnea) G47.33 Hypertension I10 Fatty liver disease, nonalcoholic K76.0 Prediabetes R73.03 Ventral hernia K43.9 Medical History Medical History Gastroesophageal reflux disease 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 Surgical History Surgical History Repair IVC injury Repair of inguinal hernia right Hepatectomy, right Tobacco Smoking/Tobacco Use Status: Never Alcohol Alcohol Intake: never Substance Use Substance use: Never Substance use type: does not use Vital Signs and Lab Results Vital Signs Most Recent Vital Signs in EMR: Most Recent Vital Signs Temp Pulse Resp BP Pulse Ox 36.6 C 75 18 145/92 H 97 07/18/23 08:50 07/18/23 08:50 07/18/23 08:50 07/18/23 08:50 07/18/23 08:50 Lab Results Blood Type / Crossmatch: No Data to Display Complete Blood Count: No Data to Display Complete Metabolic Panel: No Data to Display Liver Function Panel: No Data to Display Coagulation Panel: No Data to Display Cardiac Panel: No Data to Display Arterial Blood Gas: No Data to Display Venous Blood Gas: No Data to Display Pancreas Panel: No Data to Display Thyroid Panel: No Data to Display Infectious Disease: No Data to Display Blood Cultures: No Data to Display Toxicology Panel: No Data to Display Anesthesia Assessment and Plan Anesthesia History Personal History: No History of Anesthesia Complications Family History: No Family History of Anesthesia Complications Exercise Tolerance Exercise Tolerance: Metabolic Equivalents>4 Pertinent Negatives Pertinent Negatives: No Symptoms of GERD, No Major Cardiovascular Symptoms or Complaints and No Major Pulmonary Symptoms or Complaints Cardiac & Pulmonary Exam Cardiac Exam: Normal S1/S2 Heart Sounds Pulmonary Exam: Clear Bilateral Breath Sounds Implantable Cardiac Device Does patient have a Pacemaker or an ICD?: No Airway Exam Known Difficult Airway: No Mallampati Class: 4 Mouth Opening: Narrow (< 3cm) Thyromental Distance: Greater than 3 cm Neck Range of Motion: Full ROM Neck Circumference: Thick Teeth Condition: Normal Dentition ASA Classification ASA Score: ASA 3 Emergency Case?: No NPO Status NPO Status: NPO Clears >2 hours, Solids >8 hours Anesthesia Plan Resuscitation Status: Full Code Anesthesia Technique: General Anesthesia Airway Planned: Natural Airway Monitors Used: Standard Monitors
[2023-07-18] MEDS: ceFAZolin 3,000 MG in Normal Saline 100 ML 200 MG IV (11:10)
[2023-07-18] MEDS: Bupivacaine 0.25% Pres-Free 30 ML VIAL (11:26)
[2023-07-18] MEDS: Bupivacaine LIPOSOME/PF 133 MG/10 ML VIAL IJ (11:26)
--- NOTE | 2023-07-18 14:25 | W.ANESPOSTOP ---
Postoperative Evaluation Date, Time and Location Date Performed: 07/18/23 Time Performed: 14:25 Patient Location: Day Surgery Unit Vital Signs Most Recent Imported Vital Signs: Most Recent Vital Signs Temp Pulse Resp BP Pulse Ox 36 C L 74 16 152/92 H 98 07/18/23 14:07 07/18/23 14:07 07/18/23 14:07 07/18/23 14:07 07/18/23 14:07 Pain Score Most Recent Pain Score: Most Recent Pain Score Pain Level 0 07/18/23 13:38 Assessment Mental Status: Awake (Alert & Oriented to Patient Baseline) Airway and Respiratory Function: Patent airway with normal (patient baseline) respiratory exam Cardiovascular Function: Hemodynamically Stable Hydration Status: Adequately Hydrated Nausea & Vomiting: No Nausea or Vomiting Pain: Pain is tolerable per patient Peripheral Nerve Block: Regional nerve block not resolved at time of post operative discharge
== END 2023-07-18 14:30 | disposition home or self-care (01) ==
PROVIDERS: PCP Nurse Practitioner Family; Visit Provider Surgery
PROC: (CPT 49593; principal; 2023-07-18 09:30)
DX: K43.9 Ventral hernia without obstruction or gangrene (principal); K76.0 Fatty (change of) liver, not elsewhere classified; R73.03 Prediabetes
CPT/HCPCS: 49593; C1781; C9290; J0665; J0690; J1100; J2001; J2250; J2405; J2704

== ENCOUNTER 2023-10-02 18:52 | Outpatient (REF) | payer OTHER, SELFPAY ==
[2023-10-02 16:00] LABS: ALT 113 U/L (16-63); AST 51 U/L (15-37); Albumin 4.1 g/dL (3.4-5.0); Alkaline Phosphatase 69 U/L (46-116); BUN 17 mg/dL (7-18); Calcium 9.3 mg/dL (8.5-10.1); Chloride 104 mmol/L (98-107); Estimated GFR 94.59 (mL/min/1.73m2); Glucose 115 mg/dL (74-106); Potassium 3.6 mmol/L (3.5-5.1); Sodium 142 mmol/L (136-145); Total Protein 7.7 g/dL (6.4-8.2)
[2023-10-02 16:32] LABS: Hemoglobin A1C 5.6 % (<5.7)
== END 2023-10-02 18:53 | disposition home or self-care (01) ==
LOC: NCHCN 18:52
PROVIDERS: PCP Nurse Practitioner Family; Visit Provider Nurse Practitioner Family
DX: Z00.00 Encounter for general adult medical examination without abnormal findings (principal)
CPT/HCPCS: 80053; 83036

== ENCOUNTER 2025-04-21 10:43 | Outpatient (REF) | payer OTHER, SELFPAY ==
[2025-04-21 15:59] LABS: ALT 72 U/L (10-49); AST 37 U/L (<34); Albumin 4.4 g/dL (3.4-5.0); Alkaline Phosphatase 59 U/L (46-116); Anion Gap 10.9 mmol/L (3-11); BUN 24 mg/dL (9-23); Bilirubin, Total 0.80 mg/dL (0.2-1.2); CO2 27.1 mmol/L (20.0-31.0); Calcium 9.5 mg/dL (8.3-10.6); Chloride 105 mmol/L (98-107); Glucose 110 mg/dL (74-106); Potassium 4.1 mmol/L (3.5-5.1); Sodium 143 mmol/L (136-145); Total Protein 6.8 g/dL (5.7-8.2)
[2025-04-21 16:00] LABS: Hemoglobin A1C 5.4 % (<5.7)
[2025-04-21 16:04] LABS: HCT 44.8 % (40.0-50.0); HGB 15.6 g/dL (13.5-17.5); MCH 29.1 pg (27.0-33.0); MCHC 34.8 % (32.0-36.0); MCV 84 fL (80-95); MPV 11.9 fL (8.0-11.0); Platelet Count 225 10^3/uL (130-400); RBC 5.36 10^6/uL (4.36-5.78); RDW 12.6 % (11.8-14.1); RDW-SD 37.9 fL; WBC 7.22 10^3/uL (4.4-10.8)
[2025-04-21 16:14] LABS: Microalb ug/mg Crea 60.1 ug/mg Cr
== END 2025-04-21 10:44 | disposition home or self-care (01) ==
LOC: NCHCN 10:43
PROVIDERS: PCP Nurse Practitioner Family; Visit Provider Nurse Practitioner Family
DX: I10 Essential (primary) hypertension (principal)
CPT/HCPCS: 80053; 85027; 82043; 82570; 83036

== ENCOUNTER 2025-04-25 07:56 | Outpatient (CLI) | payer OTHER, SELFPAY ==
--- NOTE | 2025-04-25 07:45 | RT.EKG_ITS ---
APPROVED REPORT Exam: Resting ECG Reason for Exam: HTN Patient Location: O HR:71 bpm ECG Measurements Heart Rate 71 AXIS NM 176 P 34 QRSd 113 QRS 28 QT 406 T 60 QTc 442 Conclusion Sinus rhythm...normal P axis, V-rate 50- 99 Borderline intraventricular conduction delay...QRSd >112mS
== END 2025-04-25 07:57 | disposition home or self-care (01) ==
LOC: DI.CARD 07:57
PROVIDERS: PCP Nurse Practitioner Family; Visit Provider Registered Nurse
DX: I10 Essential (primary) hypertension (principal); G47.33 Obstructive sleep apnea (adult) (pediatric)
CPT/HCPCS: 93010